=== PATIENT | male | born 1970 | race Caucasian/White ===

== ENCOUNTER 2022-12-08 17:46 | Emergency (ER) | payer SELFPAY ==
[2022-12-08 17:56] VITALS: BP 167/98; PULSE 86; RESP 18; TEMP 36.7; O2SAT 98; BMI 31.9
[2022-12-08 18:24] LABS: Basophils Absolute Auto 0.03 K/uL (0.00-0.30); Basophils Percent Auto 0.4 % (0.0-3.0); Eosinophils Absolute Auto 0.08 K/uL (0.00-0.50); Eosinophils Percent Auto 1.2 % (0.0-7.0); Hematocrit 41.9 % (37.0-53.0); Hemoglobin* 14.1 gm/dL (13.5-17.5); Immature Granulocytes Abs Auto 0.01 K/uL (0.00-0.30); Immature Granulocytes Pct Auto 0.1 %; Lymphocytes Absolute Auto 2.59 K/uL (0.90-2.90); Lymphocytes Percent Auto 37.9 % (20-44); Mean Corpuscular HGB Conc 34 gm/dL (32-36); Mean Corpuscular Hemoglobin 29 pg (26-34); Mean Corpuscular Volume 88 fL (80-100); Monocytes Percent Auto 6.1 % (0.0-11.0); Neutrophils Percent Auto 54.3 % (42.0-72.0); Platelet Count* 230 K/uL (140-440); RDW Coefficient of Variation % 12.6 % (11.5-15.5); Red Blood Count 4.79 m/uL (4.30-5.90); White Blood Count* 6.83 K/uL (4.50-11.00)
[2022-12-08 18:25] LABS: Slide Review Reflex No
[2022-12-08 18:26] LABS: Albumin* 4.4 g/dL (3.3-5.0)
[2022-12-08 18:27] LABS: Chloride* 105 mmol/L (96-114); Potassium* 3.5 mmol/L (3.6-5.1); Sodium* 138 mmol/L (135-149)
[2022-12-08 18:29] LABS: Aspartate Amino Transferase* 29 U/L (12-35); Bilirubin Total* 0.4 mg/dL (0.1-1.5); Blood Urea Nitrogen* 15 mg/dL (7-30); Carbon Dioxide* 26 mmol/L (20-32); Creatinine* 0.6 mg/dL (0.5-1.5); Est. Creatinine Clearance* 114.59; Estimated Glomerular Filt Rate 115 ml/min; Total Protein* 7.7 g/dL (6.0-8.3)
[2022-12-08 18:30] LABS: Alanine Aminotransferase* 27 U/L (4-50); Alkaline Phosphatase* 89 U/L (40-150); Calcium* 8.7 mg/dL (8.4-10.6); Glucose* 178 mg/dL (60-115)
--- NOTE | 2022-12-08 18:31 | ED_ITS ---
HPI - Chest Pain General Chief Complaint: Chest Pain Stated Complaint: Chest Pain S of B Numb Arm Time Seen by Provider: 12/08/22 17:49 History of Present Illness HPI narrative: 52-year-old man accompanied by his daughter who also helps with interpreting per their preference, with complaint of left-sided chest pressure and then subsequently some numbness in his left arm indicates to the fingers including thumb index and a bit of the middle finger. Did have 1 vessel cardiac stenting done 9 months ago. On review of records it looks as though indication for this was positive Lexiscan after coronary CT showing a narrowed artery along with anginal symptoms. He has been well since stenting. Underlying history also diabetes. With onset of this pressure he was feeling nauseated. He did take 1 nitro and did improve his pain/discomfort. Currently 02/19 he says. Other associated symptom was nausea. And now with some headache. No abdominal pain. No cough or cold symptoms or fever recently. He is not short of breath. Related Data Home Medications Medication Instructions Recorded Confirmed glipizide 10 mg tablet 10 mg PO BID 12/08/22 12/08/22 lisinopril 20 mg tablet 20 mg PO DAILY 12/08/22 12/08/22 metformin 1,000 mg tablet 1,000 mg PO BID 12/08/22 12/08/22 Previous Rx's Medication Instructions Recorded clopidogrel 75 mg tablet (Plavix) 75 mg PO DAILY #30 tabs 12/08/22 Allergies Allergy/AdvReac Type Severity Reaction Status Date / Time No Known Drug Allergies Allergy Verified 12/08/22 17:59 Review of Systems Status of ROS Reports: 6 or more systems reviewed and unremarkable except as noted in History and below [facility] Social History Smoking Status: Former smoker Do you use any of these nicotine containing products: None How often do you have a drink containing alcohol: never AUDIT-C Alcohol total score: 0 Non-prescribed substance use: denies use Exam Narrative Exam Narrative: Pleasant. Does appear worried. Trembling some. I would note the room is cold but it appears that he is anxious. Skin is warm and dry. Healed acne type lesion possibly at the right upper anterior abdomen/chest. Extremities are with very trace pretibial edema. Lungs are clear. Palpation of the back elicits pain in the right side rhomboids. He does have good sensation I would say in the left arm though subjectively numb/tingly as described. No weakness. Moving all extremities otherwise without difficulty and he is well perfused. Heart with regular rate and rhythm. No MRG appreciated. Const Vital Signs, click to edit/add: Vital Signs - 24 hr 12/08/22 17:56 Temperature 98.1 F Pulse Rate [Right Pulse Oximeter] 86 Respiratory Rate 18 Blood Pressure [Right Upper Arm] 167/98 H Pulse Oximetry 98 Oxygen Delivery Method Room Air Documenting provider has reviewed patient's vital signs: yes Course Vital Signs Vital signs: Initial Vital Signs Temperature 98.1 F 12/08/22 17:56 Temperature Source Temporal Artery Scan 12/08/22 17:56 Pulse Rate 86 12/08/22 17:56 Respiratory Rate 18 12/08/22 17:56 Blood Pressure 167/98 H 12/08/22 17:56 Blood Pressure Mean 121 12/08/22 17:56 Blood Pressure Position Sitting 12/08/22 17:56 Pulse Oximetry 98 12/08/22 17:56 Oxygen Delivery Method Room Air 12/08/22 17:56 Vital Signs Temperature 98.1 F 12/08/22 17:56 Pulse Rate 86 12/08/22 17:56 Respiratory Rate 18 12/08/22 17:56 Blood Pressure 167/98 H 12/08/22 17:56 Pulse Oximetry 98 12/08/22 17:56 Oxygen Delivery Method Room Air 12/08/22 17:56 Temperature 98.1 F 12/08/22 17:56 Pulse Rate 86 12/08/22 17:56 Respiratory Rate 18 12/08/22 17:56 Blood Pressure 167/98 H 12/08/22 17:56 Pulse Oximetry 98 12/08/22 17:56 Oxygen Delivery Method Room Air 12/08/22 17:56 MDM - Chest Pain MDM Narrative Medical decision making narrative: Considering pulmonary embolus, ischemic cardiovascular event, pneumothorax, radicular symptoms from neck or rhomboid strain, exacerbation of anxiety, among others. IV has been established. Will be receiving a L of normal saline in anticipation of further doses of nitroglycerin. Also ordering for Ativan for what I think is some degree of anxiety. 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 Initial EKG reviewed by me shows normal sinus rhythm rate of 87. I do not appreciate acute ischemic changes. baseline irritability. Monitor asphalt screed operator without event. Chest pressure resolved. Markedly less symptoms in the left arm maybe some mild residual left in the forearm on reassessment. Repeated EKG at 2 hours and is generally unchanged normal sinus at 68. No ischemic changes. Reviewed by me I did speak with Cardiology on-call for [facility] for further recommendations/arrange follow-up. They confirmed that stent was placed in the 2nd branch of the right coronary. Seems like there was some question about duration of Plavix. In conversation Cardiology suggests 1 year. Mr. Gifford is is under impression that he was to stop this at 3 months and so is no longer taking Plavix. Will dose here once and give a another prescription to clarify with his employee communications manager tomorrow. See patient discharge plan Medical Records Data Attestation: I reviewed the patient's medical records. Lab Data Attestation: I reviewed the patient's lab results. Labs: Lab Results 12/08/22 12/08/22 12/08/22 Range/Units 18:02 18:16 20:10 WBC 6.83 (4.50-11.00) K/uL RBC 4.79 (4.30-5.90) m/uL Hgb 14.1 (13.5-17.5) gm/dL Hct 41.9 (37.0-53.0) % MCV 88 (80-100) fL MCH 29 (26-34) pg MCHC 34 (32-36) gm/dL RDW Coeff of Margarita 12.6 (11.5-15.5) % Plt Count 230 (140-440) K/uL Neut % (Auto) 54.3 (42.0-72.0) % Lymph % (Auto) 37.9 (20-44) % Coffee % (Auto) 6.1 (0.0-11.0) % Eos % (Auto) 1.2 (0.0-7.0) % Baso % (Auto) 0.4 (0.0-3.0) % Neut # (Auto) 3.70 (1.7-7.0) K/uL Lymph # (Auto) 2.59 (0.90-2.90) K/uL Coffee # (Auto) 0.40 (0.00-0.90) K/UL Eos # (Auto) 0.08 (0.00-0.50) K/uL Baso # (Auto) 0.03 (0.00-0.30) K/uL Sodium 138 (135-149) mmol/L Potassium 3.5 L (3.6-5.1) mmol/L Chloride 105 (96-114) mmol/L Carbon Dioxide 26 (20-32) mmol/L BUN 15 (7-30) mg/dL Creatinine 0.6 (0.5-1.5) mg/dL Estimated Creat Clear 114.59 Estimated GFR 115 ml/min Glucose 178 H (60-115) mg/dL Calcium 8.7 (8.4-10.6) mg/dL Total Bilirubin 0.4 (0.1-1.5) mg/dL Direct Bilirubin 0.0 (0.0-0.5) mg/dL AST 29 (12-35) U/L ALT 27 (4-50) U/L Alkaline Phosphatase 89 (40-150) U/L Troponin I < 0.01 L (0.01-0.04) ng/mL Total Protein 7.7 (6.0-8.3) g/dL Albumin 4.4 (3.3-5.0) g/dL POC Troponin I 0.00 L 0.01 (0.01-0.04) ng/ml Discharge Plan Discharge Clinical Impression: Chest pressure, Rhomboid muscle strain Patient Disposition: Home w/ Parent or Adult Condition: Improved Instructions: Chest Pain (ED) Additional Instructions: Please call to your employee communications manager tomorrow to discuss next steps in care. This might include a repeat stress test. Ask them also how long they would like you to continue on the Plavix; to clarify. I have written for another 30 days that you can fill if necessary. See handout for some stretches/exercises you can do daily to work out your upper back. It seems that you had some pain here. Sometimes this can cause symptoms into the arms as discussed but I am not convinced that that is what was causing your left arm discomfort. Return for persistent and increased pain/pressure unresolved with nitroglycerin. You can take up to 3 doses of nitroglycerin 5 minutes apart for chest pain/pressure. I think maybe some degree of anxiety, understandably, was exacerbating some of your symptoms here today. Llame a lujan cardi?logo ma?radha para discutir los pr?ximos pasos en la atenci?n. Delavan podr?a incluir repetir la prueba de esfuerzo. Preg?nteles tambi?n cu?nto tiempo les gustar?a que continuara con el Plavix; para aclarar. He escrito por otros 30 d?as que puedes llenar si es necesario. Consulte el folleto para conocer algunos estiramientos / ejercicios que puede hacer diariamente para trabajar la parte superior de la espalda. Parece que tuviste algo de dolor aqu?. A veces, esto puede causar s?ntomas en los brazos joyce se discuti?, azucena no estoy convencido de que eso sea lo que estaba causando molestias en el brazo julia. Retorno para el dolor/presi?n persistente y aumentado no resuelto con nitroglicerina. Puede davon hasta 3 dosis de nitroglicerina con 5 minutos de diferencia para el dolor/presi?n en el pecho. Creo que jason vez alg?n celsa de ansiedad, comprensiblemente, estaba exacerbando algunos de charlee s?ntomas aqu? hoy. Activity Level: No Restrictions Discharge Diet: Regular Prescriptions: New clopidogrel [Plavix] 75 mg tablet 75 mg PO DAILY Qty: 30 0RF No Action lisinopril 20 mg tablet 20 mg PO DAILY glipizide 10 mg tablet 10 mg PO BID metformin 1,000 mg tablet 1,000 mg PO BID Follow Up/Referrals: Judith Barros PA [Primary Care Provider] - Stand Alone Forms: [facility] Info Instructions
[2022-12-08 18:42] LABS: Troponin I* < 0.01 ng/mL (0.01-0.04)
[2022-12-08] MEDS: 0.9 % SODIUM CHLORIDE 1000 ml 1,000 ML IV (18:42)
[2022-12-08] MEDS: LORazepam 2 MG/ML inj 0.5 MG IVP (18:42)
[2022-12-08 20:28] LABS: Troponin, Point-of-Care* 0.01 ng/ml (0.01-0.04)
== END 2022-12-08 21:28 | disposition home or self-care (01) ==
PROVIDERS: Emergency Provider Family Medicine; PCP Physician Assistant
DX: R07.89 Other chest pain (principal); S46.011A Strain of muscle(s) and tendon(s) of the rotator cuff of right shoulder, initial encounter
CPT/HCPCS: 36415; 80048; 80076; 82962; 84484; 85025; 93005; 96374; 99284; J2060; J7030

== ENCOUNTER 2023-09-25 14:41 | Emergency (ER) | payer OTHER, SELFPAY ==
[2023-09-25 14:59] VITALS: BP 160/96; PULSE 74; RESP 18; TEMP 36.8; O2SAT 98; BMI 33.7
--- NOTE | 2023-09-25 15:26 | ED_ITS ---
HPI - General Adult General Chief complaint: Chest Pain Stated complaint: Chest pain Time Seen by Provider: 09/25/23 14:49 Source: patient and family Mode of arrival: ambulatory Limitations: no limitations History of Present Illness HPI narrative: 52-year-old male coming in today complaining of chest pain going on for 4 days. He states that he woke up with pain 4 days ago and the pain has not changed. Nothing makes the pain better. Any sort of movement makes the pain worse. Pain is located along the right sternal border and does not radiate. He denies cough, fevers, chills, shortness of breath. He denies any recent illness or recent traveling. He states that he also has pain at the base of the neck bilaterally. Again movement makes his pain worse and nothing makes it better. Patient states that he is under a lot of stress and becomes tearful during our conversation. Patient does have a history of coronary artery disease, hypertension, insulin- dependent diabetes, hyperlipidemia. Related Data Home Medications Medication Instructions Recorded Confirmed glipizide 10 mg tablet 10 mg PO BID 12/08/22 12/08/22 lisinopril 20 mg tablet 20 mg PO DAILY 12/08/22 12/08/22 metformin 1,000 mg tablet 1,000 mg PO BID 12/08/22 12/08/22 Previous Rx's Medication Instructions Recorded clopidogrel 75 mg tablet (Plavix) 75 mg PO DAILY #30 tabs 12/08/22 Allergies Allergy/AdvReac Type Severity Reaction Status Date / Time No Known Drug Allergies Allergy Verified 12/08/22 17:59 Review of Systems Status of ROS: Reports: 10 or more systems reviewed and unremarkable except as noted in History and below [facility] Social History Smoking Status: Current some day smoker What tobacco products do you use: cigarettes How often do you have a drink containing alcohol: never AUDIT-C Alcohol total score: 0 Non-prescribed substance use: denies use Exam Narrative: Exam Narrative: Well-nourished well-developed patient in no acute distress however. Becomes tearful when we discussed stressors. Alert and oriented. Answers questions appropriately. Mood and affect are appropriate. Thoughts are goal oriented and rational. No tangential or magical thinking noted. Patient speaks in full sentences without needing to catch his breath. HEENT: Normocephalic atraumatic. Pupils are equally round reactive to light. Extraocular muscles are intact. Conjunctivae are moist without any icterus noted. Moist mucous membranes. Posterior pharynx is normal. Neck is soft without any lymphadenopathy or thyromegaly. No masses are appreciated. Patient has tenderness with palpation of the trapezius muscles bilaterally. He has no point tenderness over the cervical spine. He has limited range of motion secondary to bilateral discomfort. Cardiovascular: Heart is regular rate and rhythm S1 and S2 are present without any murmurs. Lungs: Clear to auscultation bilaterally no wheezes rhonchi or rales are appreciated. Patient takes deep breaths with some discomfort. I can reproduce his discomfort with palpation of the right sternal border. He has no pain on the left sternal border. Abdomen: Soft and nontender nondistended with normal bowel sounds. No guarding or rebound. No masses or organomegaly appreciated. No pain with deep palpation of the right or left upper quadrants. Extremities: Bilateral lower extremities are without edema. Normal DP and PT pulses. Skin: Well perfused without any obvious rashes. Const: Vital Signs, click to edit/add: Vital Signs - 24 hr 09/25/23 14:59 Temperature 98.2 F Pulse Rate [Pulse Oximeter] 74 Respiratory Rate 18 Blood Pressure [Ri t Upper Arm] 160/96 H Pulse Oximetry 98 Oxygen Delivery Me thod Room Air Course Course ED Course: EKG, read by me, shows normal sinus rhythm with a pulse of 78. He received IM Toradol. Vital Signs Vital signs: Initial Vital Signs Temperature 98.2 F 09/25/23 14:59 Temperature Source Temporal Artery Scan 09/25/23 14:59 Pulse Rate 74 09/25/23 14:59 Respiratory Rate 18 09/25/23 14:59 Blood Pressure 160/96 H 09/25/23 14:59 Blood Pressure Mean 117 H 09/25/23 14:59 Pulse Oximetry 98 09/25/23 14:59 Oxygen Delivery Method Room Air 09/25/23 14:59 Vital Signs Temperature 98.2 F 09/25/23 14:59 Pulse Rate 74 09/25/23 14:59 Respiratory Rate 18 09/25/23 14:59 Blood Pressure 160/96 H 09/25/23 14:59 Pulse Oximetry 98 09/25/23 14:59 Oxygen Delivery Method Room Air 09/25/23 14:59 Temperature 98.2 F 09/25/23 14:59 Pulse Rate 74 09/25/23 14:59 Respiratory Rate 18 09/25/23 14:59 Blood Pressure 160/96 H 09/25/23 14:59 Pulse Oximetry 98 09/25/23 14:59 Oxygen Delivery Method Room Air 09/25/23 14:59 Medical Decision Making MDM Narrative Medical decision making narrative: 52-year-old male with what appears to be costochondritis and musculoskeletal pain of the neck. Given the fact that his pain is so easily reproducible on physical examination I do not believe this constitutes an acute coronary syndrome or other life-threatening pathology such as PE, pneumothorax or pneumonia. Patient will be sent home with hydrocodone to take as needed as well as a muscle relaxer. We discussed heat to the chest wall. Given his history of coronary artery disease, I do not want him to be dosed regularly with NSAIDs. Discharge Plan Discharge Clinical Impression: Costochondritis, Neck pain Patient Disposition: Home, Self-Care Condition: Stable Additional Instructions: Take pain medication as needed. One is for pain, and the other is to relax your muscles (Flexeril). You should also take Tylenol 1000 mg up to 3 times a day as needed. Also use a heating pad to the chest wall, do not apply heat directly to skin. Use for 20 minutes at a time multiple times per day. Pain will likely continue for several more days before it gets better. You should do your best to get the best sleep that you can at night. If you develop a fever, vomiting, or worsening pain then you should return to the ER. Prescriptions: No Action lisinopril 20 mg tablet 20 mg PO DAILY glipizide 10 mg tablet 10 mg PO BID metformin 1,000 mg tablet 1,000 mg PO BID clopidogrel [Plavix] 75 mg tablet 75 mg PO DAILY Qty: 30 0RF Follow Up/Referrals: Judith Barros PA [Primary Care Provider] - Stand Alone Forms: [facility] Info Instructions
[2023-09-25] MEDS: KETOROLAC 30 MG/ML inj 60 MG IM (15:36)
[2023-09-25 15:55] LABS: PCR FLU A Negative PCR FLU A (Negative); PCR FLU B Negative PCR FLU B (Negative); PCR RSV Negative PCR RSV (Negative); SARS PCR* Negative SARS-CoV-2 (Negative)
== END 2023-09-25 15:49 | disposition home or self-care (01) ==
PROVIDERS: Emergency Provider Family Medicine; PCP Physician Assistant
DX: M94.0 Chondrocostal junction syndrome [Tietze] (principal); M54.2 Cervicalgia
CPT/HCPCS: 87631; 93005; 96372; 99284; J1885

== ENCOUNTER 2025-07-05 13:20 | Emergency (ER) | payer OTHER, SELFPAY ==
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
[2025-07-05 13:28] VITALS: BP 160/83; PULSE 89; RESP 16; TEMP 36.9; O2SAT 97; BMI 34.3
--- NOTE | 2025-07-05 13:40 | ED.GENADULT ---
HPI - General Adult General Chief complaint: Extremity Pain/Injury, Lower Stated complaint: L foot injury Time Seen by Provider: 07/05/25 13:25 History of Present Illness HPI narrative: Family is interpreting, declination signed. Patient states forklift ran over his left foot on Tuesday . Ambulatory into triage. Toes are bruised and swollen. Took Tylenol and ibuprofen before he came in. 54-year-old man presenting to the emergency department following injury to his left foot. Apparently a forklift ran over his left foot at work a little over week ago. Has not had any imaging or it sounds like medical evaluation. Continues to have pain over the dorsum foot. Is able to ambulate but it is painful. While working does depart clear spend a good deal of time on his feet including up ladders I think. Work has been contributing to worsening pain. Does report that it might be possible to have more sedentary/light duty work for little while at least. Has been treating with acetaminophen and ibuprofen. Admits that swelling has improved quite a bit; was much more swollen. Related Data Home Medications ?Medication ?Instructions ?Recorded ?Confirmed glipizide 10 mg tablet 10 mg PO BID 12/08/22 12/08/22 lisinopril 20 mg tablet 20 mg PO DAILY 12/08/22 12/08/22 metformin 1,000 mg tablet 1,000 mg PO BID 12/08/22 12/08/22 Previous Rx's ?Medication ?Instructions ?Recorded clopidogrel 75 mg tablet (Plavix) 75 mg PO DAILY #30 tabs 12/08/22 Allergies Allergy/AdvReac Type Severity Reaction Status Date / Time No Known Drug Allergies Allergy Verified 12/08/22 17:59 Review of Systems Status of ROS: Reports: 6 or more systems reviewed and unremarkable except as noted in History and below [facility] Social History Smoking Status: Current some day smoker What tobacco products do you use: cigarettes How often do you have a drink containing alcohol: never AUDIT-C Alcohol total score: 0 Non-prescribed substance use: denies use Exam Narrative: Exam Narrative: Very pleasant. NAD. Is here with appropriately loose footwear. Extremity in question the left foot does not show any injury about the ankle. There is mild swelling over most of the foot. Particularly with some erythematous bruising over the somewhat distal 3rd and 4th metatarsals. Quite tender here as well. Purpled bruising along the sides of his feet. No plantar bruising or erythema. Well-perfused peripherally. Const: Vital Signs, click to edit/add: Vital Signs - 24 hr 07/05/25 13:28 Temperature 98.4 F Pulse Rate [Pulse Oximeter] 89 Respiratory Rate 16 Blood Pressure [Ri ght Upper Arm] 160/83 H Pulse Oximetry 97 Documenting provider has reviewed patient's vital signs: yes Course Vital Signs Vital signs: Initial Vital Signs Temperature 98.4 F 07/05/25 13:28 Temperature Source Temporal Artery Scan 07/05/25 13:28 Pulse Rate 89 07/05/25 13:28 Respiratory Rate 16 07/05/25 13:28 Blood Pressure 160/83 H 07/05/25 13:28 Blood Pressure Mean 108 H 07/05/25 13:28 Blood Pressure Position Sitting 07/05/25 13:28 Pulse Oximetry 97 07/05/25 13:28 Vital Signs Temperature 98.4 F 07/05/25 13:28 Pulse Rate 89 07/05/25 13:28 Respiratory Rate 16 07/05/25 13:28 Blood Pressure 160/83 H 07/05/25 13:28 Pulse Oximetry 97 07/05/25 13:28 Temperature 98.4 F 07/05/25 13:28 Pulse Rate 89 07/05/25 13:28 Respiratory Rate 16 07/05/25 13:28 Blood Pressure 160/83 H 07/05/25 13:28 Pulse Oximetry 97 07/05/25 13:28 Medical Decision Making MDM Narrative Medical decision making narrative: Certainly might have sustained a fracture here. I suspect bruising is the primary problem. Periosteal contusion certainly can be painful. I think less likely to have had a foot sprain though that would be hard to discount; pain is not so much up in the bones of the ankle or proximal foot. Will do an x-ray at this point. Three-view the left foot independently reviewed by me were I do not appreciate any acute bony abnormality. Does not feel that needs medication beyond what he already has. Radiology over-read below Indication: INJURY 1 WEEK AGO. STILL HAVING PAIN AND BRUISING UP BY TOES AND ALONG THE SIDE OF THE FOOT Technique: Three views of the left foot Comparison: None Findings/Impression: No acute fracture or malalignment. No significant osteoarthritic degenerative changes. No inflammatory arthropathy. No suspicious osseous lesions. Plantar aspect calcaneal enthesophyte. Mild soft tissue edema along the dorsal and lateral aspect of the forefoot. Dictated by Paco Dodson MD @ 07/05/2025 2:10:46 PM See patient discharge plan for further discussion Elevate for comfort. Can continue with ibuprofen acetaminophen. Try to limit prolonged standing ambulation this next week. Still might be helpful to ice your foot daily over this next week. Can use these Joseph wraps for icing or to help push out some of the fluid. Medical Records Medical records reviewed: Yes I reviewed the patient's medical records Discharge Plan Discharge Clinical Impression: Crush injury, Contusion Patient Disposition: Home, Self-Care Condition: Stable Additional Instructions: Elevate for comfort. Can continue with ibuprofen acetaminophen. Try to limit prolonged standing ambulation this next week. Still might be helpful to ice your foot daily over this next week. Can use these Joseph wraps for icing or to help push out some of the fluid. Eleve el pie para mayor comodidad. Puede continuar con ibuprofeno y acetaminof?n. Intente limitar la deambulaci?n prolongada de pie la pr?xima semana. Aplicar hielo en el pie a diario mary la pr?xima semana podr?a ser ?til. Puede usar estas vendas Joseph para aplicar hielo o para ayudar a expulsar parte del l?quido. Prescriptions: No Action lisinopril 20 mg tablet 20 mg PO DAILY glipizide 10 mg tablet 10 mg PO BID metformin 1,000 mg tablet 1,000 mg PO BID clopidogrel [Plavix] 75 mg tablet 75 mg PO DAILY Qty: 30 0RF Follow Up/Referrals: Judith Barros PA [Primary Care Provider, Family Practice] Stand Alone Forms: MyHealth Info Instructions
--- NOTE | 2025-07-05 13:50 | CRLHL7_ITS ---
For Patients: As a result of the Cures Act, medical imaging exams and procedure reports are released immediately into your electronic medical record. You may view this report before your referring provider. If you have questions, please contact your health care provider. Indication: INJURY 1 WEEK AGO. STILL HAVING PAIN AND BRUISING UP BY TOES AND ALONG THE SIDE OF THE FOOT Technique: Three views of the left foot Comparison: None Findings/Impression: No acute fracture or malalignment. No significant osteoarthritic degenerative changes. No inflammatory arthropathy. No suspicious osseous lesions. Plantar aspect calcaneal enthesophyte. Mild soft tissue edema along the dorsal and lateral aspect of the forefoot. Dictated by Paco Dodson MD @ 07/05/2025 2:10:46 PM (Electronically Signed)
== END 2025-07-05 14:39 | disposition home or self-care (01) ==
PROVIDERS: Emergency Provider Family Medicine; PCP Physician Assistant
DX: S97.82XA Crushing injury of left foot, initial encounter (principal); S90.32XA Contusion of left foot, initial encounter; V83.7XXA Person on outside of special industrial vehicle injured in nontraffic accident, initial encounter; Y99.0 Civilian activity done for income or pay
CPT/HCPCS: 73630; 99283; 99284